=== PATIENT | female | born 1945 | race Caucasian/White ===

== ENCOUNTER 2018-09-18 20:55 | Emergency (ER) | payer MEDICARE ==
[~2018-09-18] VITALS: Ht 162.6 cm; Wt 90.7 kg
[~2018-09-18 20:55] MED LIST: ASPIRIN325 PO; SIMVASTATIN20 MG PO
[2018-09-18] MEDS ORDERED: NORCO 5-325 TA1 EAC1 PO (21:58)
[2018-09-18 22:28] VITALS: BP 143/68
== END 2018-09-18 22:28 | disposition home or self-care (01) ==
LOC: M.ERS 20:55
DX: S52.121A Displaced fracture of head of right radius, initial encounter for closed fracture (principal); Z90.710 Acquired absence of both cervix and uterus; Z90.49 Acquired absence of other specified parts of digestive tract; Z85.3 Personal history of malignant neoplasm of breast; W01.0XXA Fall on same level from slipping, tripping and stumbling without subsequent striking against object, initial encounter; Y93.89 Activity, other specified; Y92.89 Other specified places as the place of occurrence of the external cause; Y99.8 Other external cause status